=== PATIENT | female | born 1965 | race Caucasian/White ===

== ENCOUNTER → 2017-02-04 | Day surgery (SDC) | payer MEDICARE, MEDICAID ==
[~2017-02-04] VITALS: Ht 157.4 cm; Wt 74.8 kg
[~2017-02-04] MED LIST: ADDERALL 20 MG20 MG PO; ALBUTEROL INH; ATIVAN1 MG PO; ATORVASTATIN CA40 M1 PO; BREO ELLIPTA 11 EACH IH; BRIN10TA PO; CELEXA10 MG PO; CELEXA20 MG PO; CLONAZEPAM0.5 M2 PO; DULE1ARO INH; DULERA 200 MCG8.8 GM IH; FETZIMA120 M1 PO; HYDROCODONE BIT1 T11 PO; KLONOPIN2 M1 PO; LAMICTAL200 MG PO; LANTUS100 U/ML SC; LATU120T PO; LEXAPRO10 MG PO; LISINOPRIL20 MG PO; METFORMIN500 MG PO; NEURONTIN300 MG PO; OYSTER SHELL C1 EAC4 PO; POTASSIUM CHLO20 MEQ PO; PREDNICOT20 MG PO; SIMVASTATIN40 MG PO; SINGULAIR10 MG PO; SYNTHROID0.075 MG PO; TRAD5TAB1 PO; TRAZADONE HYDR100 MG PO; TRAZODONE50 MG PO; TRESIBA FL100 UNIT/1 SQ; VICTOZA6 MG/ML SC; VITAMIN D22000 UNIT PO; XANAX0.5 MG PO; ZITHROMAX250 MG PO
--- NOTE | ~2017-02-04 | O ---
[place], [place] OPERATIVE NOTE NAME: EVA REYNOLDS UNIT #: [id number] ROOM: DOCTOR: OMAR SIMMONS MD BIRTHDATE: [birth year] DOS: 02/04/2017 GASTROENDOSCOPIC REPORT HISTORY OF PRESENT ILLNESS: A 51-year-old patient who has presented with chief complaint of colonic screening, undergone serial investigation. ALLERGIES: To DIOVAN. FAMILY HISTORY: Noncontributory. PAST MEDICAL HISTORY: Diabetes, hypertension, hypercholesterolemia. PAST SURGICAL HISTORY: Gastric bypass. SOCIAL HISTORY: E-cigarette, nonalcohol consumer. PROCEDURE: Today's procedure part of investigation is colonoscopy plus photographic series. PREMEDICATION: Versed and Diprivan. SCOPE: Olympus forward viewing colonoscope 10L video. REPORT: After putting the patient in the left lateral position and after application of lubricant to rectal pouch and digital examination, scope was introduced. Thereafter, under direct visualization, I advanced through the length of colon without difficulty. Base of the cecum explored, appendiceal orifice identified, ileocecal valve was defined. Diverticulosis of sigmoid colon was appreciated. Air was suctioned out. The patient was extubated, tolerated procedure well. IMPRESSION: Diverticulosis of the sigmoid colon. PLAN AND DISCUSSION: High fiber diet. ACTIVITY: Ad ileana. FOLLOWUP: Routinely with you in office, p.r.n. visit with us in [facility]. Thank you very much indeed for your kind referral. [place], [place] OPERATIVE NOTE NAME: EVA REYNOLDS UNIT #: [id number] ROOM: DOCTOR: OMAR SIMMONS MD BIRTHDATE: [birth year] OMAR SIMMONS MD CM:OPRECORD:OPERATIVE NOTE [id number] OMAR SIMMONS MD 02/04/17 1213 interface
[2017-02-04 08:18] VITALS: BP 112/76
[2017-02-04 08:40] VITALS: BP 85/49
[2017-02-04 08:53] VITALS: BP 96/53
[2017-02-04 09:15] VITALS: BP 92/49
== END | disposition home or self-care (01) ==
LOC: SDC 12-05 12:30
DX: Z12.11 Encounter for screening for malignant neoplasm of colon (principal); E11.9 Type 2 diabetes mellitus without complications; I10 Essential (primary) hypertension; E78.00 Pure hypercholesterolemia, unspecified; K57.30 Diverticulosis of large intestine without perforation or abscess without bleeding; F41.9 Anxiety disorder, unspecified; F31.9 Bipolar disorder, unspecified; E07.9 Disorder of thyroid, unspecified; J45.909 Unspecified asthma, uncomplicated; Z87.891 Personal history of nicotine dependence
CPT/HCPCS: 00810; G0121